=== PATIENT | male | born 1960 | race Two or more races ===

== ENCOUNTER 2021-11-15 13:51 | Emergency (ER) | payer OTHER ==
[2021-11-15] MEDS ORDERED: MAG HYDROX/AL HYDROX/SIMETH -MYLANTA- ORAL SUSPENSION PO ONE (15:07)
[2021-11-15] MEDS ORDERED: SODIUM CHLORIDE 0.9% 500 ML INFUS.BAG IV ONE (15:07)
[2021-11-15] MEDS ORDERED: FAMOTIDINE 20 MG/50 ML IVPB 20 MG in PREMIX 50 IVPB ONE (15:07)
[2021-11-15] MEDS ORDERED: FAMOTIDINE 20 MG/50 ML IVPB 20 MG/50 ML MG IVPB ONE ×2 (15:49→16:54)
[2021-11-15] MEDS ORDERED: MAG HYDROX/AL HYDROX/SIMETH 30 ML UNIT-DOSE CUP ONE ×2 (15:49→16:54)
[2021-11-15 16:28] LABS: ALBUMIN 3.4 g/dl (3.4-5.0); CALCIUM 8.7 mg/dl (8.5-10)
[2021-11-15 16:30] LABS: BILIRUBIN,TOTAL 0.6 mg/dl (0.2-1); TOT PROT 7.8 g/dl (6.4-8.2)
[2021-11-15 16:43] LABS: HEMATOCRIT 42.5 % (35.4-49); HEMOGLOBIN 14.2 G/dL (11.7-16.9); MCH 23.1 pg (25.7-33.7); MCHC 33.5 g/dl (32.0-35.9); PLATELET COUNT 265.1 10^3/uL (134-434); RBC 6.16 10^6/uL (4.00-5.60); RDW 16.7 % (11.9-15.9); WHITE BLOOD COUNT 6.5 10^3/uL (4.0-10.8)
[2021-11-15 17:03] VITALS: BP 144/76; PULSE 76; TEMP 98.6; BMI 27.3
[2021-11-15 18:58] LABS: PLATELET ESTIMATE ADEQUATE
== END 2021-11-15 18:09 | disposition home or self-care (01) ==
LOC: FER 13:51
PROC: 3E033GC Introduction of Other Therapeutic Substance into Peripheral Vein, Percutaneous Approach (ICD-10-PCS; principal; 2021-11-15)
DX: R19.7 Diarrhea, unspecified (principal)
CPT/HCPCS: 36415; 74177-TC; 80053; 81003; 83690; 85027; 96374; 99284-25; Q9967